=== PATIENT | female | born 1955 | race Caucasian/White ===

== ENCOUNTER → 2016-08-26 | Outpatient (CLI) | payer OTHER ==
--- NOTE | 2016-08-26 15:19 | BD ---
EXAMINATION TYPE: MG DEXA axial skeleton. DATE OF EXAM: 08/26/2016 1:00 PM COMPARISON: NONE CLINICAL HISTORY: 60-year-old female postmenopausal without HRT Height: 62 IN Weight: 167 LBS FRAX RISK QUESTIONS: Alcohol (3 or more units per day): NO Family History (Parent hip fracture): NO Glucocorticoids (More than 3mos): NO (Ex: prednisone, prednisolone, methylprednisolone, dexamethasone, and hydrocortisone). History of Fracture in Adulthood: NO Secondary Osteoporosis: 1. Type 1 Diabetes: NO 2. Hyperthyroidism: NO 3. Menopause before 45: AGE 58 4. Malnutrition: NO 5. Chronic liver disease: NO Rheumatoid Arthritis: NO Current Tobacco Use: NO RISK FACTORS HISTORY OF: Active: YES Postmenopausal woman: AGE 58 MEDICATIONS: Additional Medications: CALCIUM, VIT D, VIT B, VIT C, IRON PILL, Additional History: BREAST CANCER WITH RADIATION EXAM MEASUREMENTS: Bone mineral densitometry was performed using the [employer] 911 System. Bone mineral density as measured about the Lumbar spine is: ----- L1-L4(G/cm2): 0.936 T Score Values are as follows: ----- L2: -2.2 ----- L3: -2.3 ----- L4: -1.8 ----- L1-L4: -2.0 Bone mineral density BASELINE Bone mineral density about the R hip (g/cm2): 0.935 Bone mineral density about the L hip (g/cm2): 1.018 T Score values are as follows: -----R Neck: -0.7 -----L Neck: -0.1 -----R Intertrochanter: -0.7 -----L Intertrochanter: -0.3 Bone mineral density BASELINE IMPRESSION: Osteopenia as indicated by T score values in the lumbar spine. There is slightly increased risk of fracture and the patient may be considered for treatment. Re-Screen 2-5 years. NOTE: T-SCORE=SD OF THE YOUNG ADULT MEAN.
== END | disposition home or self-care (01) ==
LOC: RADBDWWP 12:58
PROVIDERS: ATTEND Obstetrics & Gynecology
DX: M85.88 Other specified disorders of bone density and structure, other site (principal); Z78.0 Asymptomatic menopausal state
CPT/HCPCS: 77080

== ENCOUNTER → 2017-03-24 | Outpatient (CLI) | payer OTHER ==
--- NOTE | 2017-03-26 07:56 | MM ---
Reason for exam: screening (asymptomatic). Last mammogram was performed 1 year ago. History: Patient is postmenopausal, has history of breast cancer at age 44, and had previous chest radiation therapy at age 44. Family history of breast cancer in paternal aunt at age 70 and breast cancer in mother at age 80. Benign excisional biopsy of the left breast, November 25, 2000. Malignant stereotactic core biopsy of the left breast, September 22, 2000. Lumpectomy of the left breast, 2000. Radiation therapy of the left breast, 2000. Core biopsy of the left breast. Took hormonal contraceptives for 3 months beginning at age 21. Took tamoxifen for 5 years beginning at age 45. Physical Findings: A clinical breast exam by your physician is recommended on an annual basis and results should be correlated with mammographic findings. MG Screening Mammo w CAD Bilateral CC and MLO view(s) were taken. Prior study comparison: March 20, 2016, bilateral MG diagnostic mammo w CAD [facility]. March 13, 2015, bilateral MG 3d diag mammo w/cad [facility]. The breast tissue is heterogeneously dense. This may lower the sensitivity of mammography. Stable post surgical scar and architectural distortion 4 o'clock left breast. No significant changes when compared with prior studies. ASSESSMENT: Benign, BI-RAD 2 RECOMMENDATION: Routine screening mammogram of both breasts in 1 year.
== END | disposition home or self-care (01) ==
LOC: RADMAMWWP 12:56
PROVIDERS: ATTEND Obstetrics & Gynecology
DX: Z12.31 Encounter for screening mammogram for malignant neoplasm of breast (principal)

== ENCOUNTER → 2017-04-07 | Outpatient (CLI) | payer OTHER ==
--- NOTE | 2017-04-08 00:23 | MR ---
EXAMINATION TYPE: MR ankle LT wo/w con DATE OF EXAM: 04/07/2017 COMPARISON: NONE HISTORY: Lt ankle lump medial aspect, increasing in size, marker placed CONTRAST: Standard multiplanar, multisequence MRI departmental protocol utilizing 7.5 mL intravenous Gadavist g adolinium contrast. FINDINGS: There are plantar and Achilles calcaneal spurs. Achilles tendon is intact. Plantar fascia a ppears normal. There is minimal ankle joint effusion. There is fluid around the medial flexor tendons of the ankle. The medial and lateral flexor tendons appear intact. I see no bony destructive process . There is a 1 cm area of fluid signal in the medial malleolus. I see no fracture line. The collatera l ligaments appear intact. The joint spaces are fairly well-maintained. IMPRESSION: Peritendinous fluid on the medial aspect of the ankle involving the flexor pollicis longus and brevis tendons appears to account for the palpable lump. This is consistent with synovitis or tendinitis. N o tendon tear is seen. Mild ankle joint effusion. Edema or fluid in the medial malleolus posteriorly that could be a bone bruise.
== END | disposition home or self-care (01) ==
LOC: RADMRIMAIN 14:14
PROVIDERS: ATTEND Podiatrist Foot & Ankle Surgery
DX: M25.472 Effusion, left ankle (principal)
CPT/HCPCS: 73723; A9581

== ENCOUNTER → 2018-03-25 | Outpatient (CLI) | payer OTHER ==
--- NOTE | 2018-03-26 12:19 | MM ---
Reason for exam: screening (asymptomatic). Last mammogram was performed 1 year ago. History: Patient is postmenopausal, has history of breast cancer at age 44, and had previous chest radiation therapy at age 44. Family history of breast cancer in paternal aunt at age 70 and breast cancer in mother at age 80. Benign excisional biopsy of the left breast, November 25, 2000. Malignant stereotactic core biopsy of the left breast, September 22, 2000. Lumpectomy of the left breast, 2000. Radiation therapy of the left breast, 2000. Core biopsy of the left breast. Took hormonal contraceptives for 3 months beginning at age 21. Took tamoxifen for 5 years beginning at age 45. Physical Findings: A clinical breast exam by your physician is recommended on an annual basis and results should be correlated with mammographic findings. MG 3D Screening Mammo W/Cad Bilateral CC and MLO view(s) were taken. Prior study comparison: March 24, 2017, bilateral MG screening mammo w CAD. March 20, 2016, bilateral MG diagnostic mammo w CAD [facility]. The breast tissue is heterogeneously dense. This may lower the sensitivity of mammography. Stable post operative changes in the left breast. No significant changes when compared with prior studies. ASSESSMENT: Benign, BI-RAD 2 RECOMMENDATION: Routine screening mammogram of both breasts in 1 year.
== END ==
LOC: RADMAMWWP 14:17
PROVIDERS: ATTEND Obstetrics & Gynecology
DX: Z12.31 Encounter for screening mammogram for malignant neoplasm of breast (principal)
CPT/HCPCS: 77063; 77067

== ENCOUNTER → 2019-03-26 | Outpatient (CLI) | payer OTHER ==
--- NOTE | 2019-03-26 15:30 | BD ---
EXAMINATION TYPE: Axial Bone Density DATE OF EXAM: 03/26/2019 COMPARISON: 08.26.2016 CLINICAL HISTORY: M [age] Height: 62 Weight: 176.7 FRAX RISK QUESTIONS: Alcohol (3 or more units per day): no Family History (Parent hip fracture): no Glucocorticoids (More than 3mos): no (Ex: prednisone, prednisolone, methylprednisolone, dexamethasone, and hydrocortisone). History of Fracture in Adulthood: no Secondary Osteoporosis: 1. Type 1 Diabetes: no 2. Hyperthyroidism: no 3. Menopause before 45: no 4. Malnutrition: no 5. Chronic liver disease: no Rheumatoid Arthritis: no Current Tobacco Use: no RISK FACTORS HISTORY OF: Family History of Osteoporosis: no Active: yes Diet low in dairy products/other sources of calcium: no Postmenopausal woman: age 57 Lost more than 2 inches in height since high school: no MEDICATIONS: none Additional History: EXAM MEASUREMENTS: Bone mineral densitometry was performed using the [employer] System. Bone mineral density as measured about the Lumbar spine is: ----- L1-L4(G/cm2): 1.004 T Score Values are as follows: ----- L2: -2.1 ----- L3: -1.7 ----- L4: -0.8 ----- L1-L4: -1.5 Bone mineral density has: increased 7.9 % since study of: 08.26.2016 Bone mineral density about the R hip (g/cm2): 0.977 Bone mineral density about the L hip (g/cm2): 1.001 T Score values are as follows: -----R Neck: -0.4 -----L Neck: -0.3 -----R Total: -0.4 -----L Total: -0.2 Bone mineral density has: decreased -2.3 % since study of: 08.26.2016 IMPRESSION: Normal (Values between +1 and -1 indicate normal bone mass). Consider repeating this study in 5 year s or sooner if there is some new clinical indication. NOTE: T-SCORE=SD OF THE YOUNG ADULT MEAN.
--- NOTE | 2019-03-30 09:55 | MM ---
Reason for exam: screening (asymptomatic). Last mammogram was performed 1 year ago. History: Patient is postmenopausal, has history of breast cancer at age 44, and had previous chest radiation therapy at age 44. Family history of breast cancer in paternal aunt at age 70 and breast cancer in mother at age 80. Benign excisional biopsy of the left breast, November 25, 2000. Malignant stereotactic core biopsy of the left breast, September 22, 2000. Lumpectomy of the left breast, 2000. Radiation therapy of the left breast, 2000. Core biopsy of the left breast. Took hormonal contraceptives for 3 months beginning at age 21. Took tamoxifen for 5 years beginning at age 45. Physical Findings: A clinical breast exam by your physician is recommended on an annual basis and results should be correlated with mammographic findings. MG 3D Screening Mammo W/Cad Bilateral CC and MLO view(s) were taken. Prior study comparison: March 25, 2018, bilateral MG 3d screening mammo w/cad. March 24, 2017, bilateral MG screening mammo w CAD. The breast tissue is heterogeneously dense. This may lower the sensitivity of mammography. Post surgical scar redemonstrated left breast. No significant changes when compared with prior studies. ASSESSMENT: Benign, BI-RAD 2 RECOMMENDATION: Routine screening mammogram of both breasts in 1 year.
== END | disposition home or self-care (01) ==
LOC: RADMAMWWP 13:58
PROVIDERS: ATTEND Obstetrics & Gynecology
DX: Z12.31 Encounter for screening mammogram for malignant neoplasm of breast (principal); Z13.820 Encounter for screening for osteoporosis; M89.9 Disorder of bone, unspecified
CPT/HCPCS: 77063; 77067; 77080

== ENCOUNTER → 2020-05-29 | Outpatient (CLI) | payer OTHER ==
--- NOTE | 2020-05-30 11:22 | MM ---
Reason for exam: screening (asymptomatic). Last mammogram was performed 1 year and 2 months ago. History: Patient is postmenopausal, has history of breast cancer at age 44, and had previous chest radiation therapy at age 44. Family history of breast cancer in paternal aunt at age 70 and breast cancer in mother at age 80. Benign excisional biopsy of the left breast, November 25, 2000. Malignant stereotactic core biopsy of the left breast, September 22, 2000. Lumpectomy of the left breast, 2000. Radiation therapy of the left breast, 2000. Core biopsy of the left breast. Took hormonal contraceptives for 3 months beginning at age 21. Took tamoxifen for 5 years beginning at age 45. Physical Findings: A clinical breast exam by your physician is recommended on an annual basis and results should be correlated with mammographic findings. MG 3D Screening Mammo W/Cad Bilateral CC and MLO view(s) were taken. Prior study comparison: March 26, 2019, bilateral MG 3d screening mammo w/cad. March 25, 2018, bilateral MG 3d screening mammo w/cad. March 20, 2016, bilateral MG diagnostic mammo w CAD [facility]. The breast tissue is heterogeneously dense. This may lower the sensitivity of mammography. No significant changes when compared with prior studies. ASSESSMENT: Benign, BI-RAD 2 RECOMMENDATION: Routine screening mammogram of both breasts in 1 year.
== END | disposition home or self-care (01) ==
LOC: RADMAMWWP 14:48
PROVIDERS: ATTEND Obstetrics & Gynecology
DX: Z12.31 Encounter for screening mammogram for malignant neoplasm of breast (principal)
CPT/HCPCS: 77063; 77067

== ENCOUNTER → 2021-07-16 | Outpatient (CLI) | payer OTHER ==
--- NOTE | 2021-07-18 12:46 | MM ---
Reason for exam: screening (asymptomatic). Last mammogram was performed 1 year and 2 months ago. History: Patient is postmenopausal, has history of breast cancer at age 44, and had previous chest radiation therapy at age 44. Family history of breast cancer in paternal aunt at age 70 and breast cancer in mother at age 80. Benign excisional biopsy of the left breast, November 25, 2000. Malignant stereotactic core biopsy of the left breast, September 22, 2000. Lumpectomy of the left breast, 2000. Radiation therapy of the left breast, 2000. Core biopsy of the left breast. Took hormonal contraceptives for 3 months beginning at age 21. Took tamoxifen for 5 years beginning at age 45. Physical Findings: A clinical breast exam by your physician is recommended on an annual basis and results should be correlated with mammographic findings. MG 3D Screening Mammo W/Cad Bilateral CC and MLO view(s) were taken. Prior study comparison: May 29, 2020, bilateral MG 3d screening mammo w/cad. March 26, 2019, bilateral MG 3d screening mammo w/cad. The breast tissue is heterogeneously dense. This may lower the sensitivity of mammography. Post surgical changes left breast. No significant changes when compared with prior studies. ASSESSMENT: Benign, BI-RAD 2 RECOMMENDATION: Routine screening mammogram of both breasts in 1 year.
== END | disposition home or self-care (01) ==
LOC: RADMAMWWP 12:31
PROVIDERS: ATTEND Obstetrics & Gynecology
DX: Z12.31 Encounter for screening mammogram for malignant neoplasm of breast (principal)
CPT/HCPCS: 77063; 77067

== ENCOUNTER → 2023-07-21 | Outpatient (CLI) | payer MEDICARE ==
--- NOTE | 2023-07-23 14:17 | MM ---
Reason for Exam: Screening (asymptomatic). Last screening mammogram was performed 12 month(s) ago. Patient History: Menarche at age 14. First Full-Term at age 24. Left ovary removed at age 59. Right ovary removed at age 59. Hysterectomy at age 59. Postmenopausal. Breast cancer, left, age 44. Previous chest radiation therapy at age 44. Hormonal Contraceptives for 3 months starting at age 21. Tamoxifen for 5 years from age 45 until age 50. 2000, Lumpectomy on the Left side. Core Biopsy on the Left side. 11/25/2000, Benign Excisional Biopsy on the left side. 09/22/2000, Malignant Stereotactic Core Biopsy on the left side. 2000, Radiation Therapy on the left side. Paternal aunt had breast cancer, age 70. Mother had breast cancer, age 80. Prior Study Comparison: 05/29/2020 Bilateral Screening Mammogram, [facility]. 07/16/2021 Bilateral Screening Mammogram, [facility]. 07/17/2022 Bilateral MG 3D screening mammo w/cad, [facility]. Tissue Density: There are scattered areas of fibroglandular density. Findings: Analyzed By CAD. Similar left architectural distortion slightly lateral to the back to at least 2019 There is no suspicious group of microcalcifications or new suspicious mass. Overall Assessment: Benign, BI-RAD 2 Management: Screening Mammogram of both breasts in [address] [facility] will attempt to contact patient to return for supplemental views and ultrasound if indicated. Patient should continue monthly self-breast exams. A clinical breast exam by your physician is recommended on an annual basis. This exam should not preclude additional follow-up of suspicious palpable abnormalities. Note on Arlene scores and lifetime risk: 1. A Arlene score greater than 3% is considered moderate risk. If this is the case, consider specialist referral to assess eligibility for a risk reducing agent. 2. If overall lifetime risk for the development of breast cancer is 20% or higher, the patient may qualify for future screening with alternating mammogram and breast MRI. Electronically signed and approved by: Shashi Yu DO
== END | disposition home or self-care (01) ==
LOC: RADMAMWWP 12:49
PROVIDERS: ATTEND Obstetrics & Gynecology
DX: Z12.31 Encounter for screening mammogram for malignant neoplasm of breast (principal); Z85.3 Personal history of malignant neoplasm of breast; Z80.3 Family history of malignant neoplasm of breast; Z78.0 Asymptomatic menopausal state
CPT/HCPCS: 77063; 77067

== ENCOUNTER → 2024-07-26 | Outpatient (CLI) | payer MEDICARE ==
--- NOTE | 2024-07-26 14:26 | BD ---
EXAMINATION TYPE: Axial Bone Density DATE OF EXAM: 07/26/2024 CLINICAL HISTORY: 68 years old Female. ICD-10 CODE: Z78.0 ASYMPTOMATIC MENOPAUSAL STA , Additional History: Height: 62 Weight: 166 FRAX RISK QUESTIONS: Family History (Parent hip fracture): yes History of Fracture in Adulthood: no Secondary Osteoporosis: no RISK FACTORS HISTORY OF: Surgery to Spine/Hip(right/left)/Wrist (right/left): no MEDICATIONS: Thyroid Medications: no Osteoporosis Medications: no EXAM MEASUREMENTS: Bone mineral densitometry was performed using the [employer] System. Bone mineral density as measured about the Lumbar spine is: ----- L1-L4(G/cm2): 1.013 T Score Values are as follows: ----- L1: -1.5 ----- L2: -1.7 ----- L3: -1.6 ----- L4: -0.9 ----- L1-L4: -1.4 Z Score Values are as follows: ----- L1: -0.3 ----- L2: -0.4 ----- L3: -0.4 ----- L4: 0.3 ----- L1-L4: -0.1 Bone mineral density has: Increased 3.1% since study of: 07/17/2022 Bone mineral density about the R hip (g/cm2): 0.887 Bone mineral density about the L hip (g/cm2): 0.911 T Score values are as follows: -----R Neck: -1.0 -----L Neck: -0.7 -----R Total: -1.0 -----L Total: -0.8 Z Score values are as follows: -----R Neck: 0.3 -----L Neck: 0.6 -----R Total: 0.1 -----L Total: 0.3 Bone mineral density has: Decreased -2.2% since study of: 07/17/2022 FRAX%s: The graph provided illustrates a 14.5% chance for a major osteoporotic fx and a 0.8% chance f or the hips probability for fx in 10 years time. IMPRESSION: Osteopenia (T Score between -2.5 and -1) remains present. There is slightly increased risk of fracture and the patient may be considered for treatment. Re-Screen 2-5 years. NOTE: T-SCORE=SD OF THE YOUNG ADULT MEAN. [facility], , 07/26/2024 2:24 PM
--- NOTE | 2024-07-26 14:39 | MM ---
Reason for Exam: Screening (asymptomatic). Last screening mammogram was performed 12 month(s) ago. Patient History: Menarche at age 14. First Full-Term at age 24. Left ovary removed at age 59. Right ovary removed at age 59. Hysterectomy at age 59. Postmenopausal. Breast cancer, left, age 44. Previous chest radiation therapy. Hormonal Contraceptives for 3 months starting at age 21. Tamoxifen for 5 years from age 45 until age 50. 2000, Lumpectomy on the Left side. Core Biopsy on the Left side. 11/25/2000, Benign Excisional Biopsy on the left side. 09/22/2000, Malignant Stereotactic Core Biopsy on the left side. 2000, Radiation Therapy on the left side. Paternal aunt had breast cancer, age 70. Mother had breast cancer, age 80. Prior Study Comparison: 07/16/2021 Bilateral Screening Mammogram, [facility]. 07/17/2022 Bilateral MG 3D screening mammo w/cad, [facility]. 07/21/2023 Bilateral MG 3D screening mammo w/cad, [facility]. Tissue Density: The breasts are heterogeneously dense, which may obscure small masses. Findings: Analyzed By CAD. Stable distortion/posttreatment change in the left breast There is a new 10 mm lobulated mass posterior depth upper outer quadrant right breast. Overall Assessment: Incomplete: need additional imaging evaluation, BI-RAD 0 Management: Diagnostic Breast Ultrasound of the right breast. Targeted ultrasound right breast. Patient should continue monthly self-breast exams. A clinical breast exam by your physician is recommended on an annual basis. This exam should not preclude additional follow-up of suspicious palpable abnormalities. Note on Arlene scores and lifetime risk: 1. A Arlene score greater than 3% is considered moderate risk. If this is the case, consider specialist referral to assess eligibility for a risk reducing agent. 2. If overall lifetime risk for the development of breast cancer is 20% or higher, the patient may qualify for future screening with alternating mammogram and breast MRI. [facility], , 07/26/2024 2:37 PM. Electronically signed and approved by: Giacomo Burns M.D.
== END | disposition home or self-care (01) ==
LOC: RADMAMWWP 13:27
PROVIDERS: ATTEND Family Medicine
DX: Z12.31 Encounter for screening mammogram for malignant neoplasm of breast (principal); R92.333 Mammographic heterogeneous density, bilateral breasts; M85.89 Other specified disorders of bone density and structure, multiple sites; Z78.0 Asymptomatic menopausal state; Z80.3 Family history of malignant neoplasm of breast; Z85.3 Personal history of malignant neoplasm of breast
CPT/HCPCS: 77063; 77067; 77080

== ENCOUNTER → 2024-08-16 | Outpatient (CLI) | payer MEDICARE ==
--- NOTE | 2024-08-16 15:38 | USB ---
Reason for Exam: Additional evaluation requested from abnormal screening. Patient History: Menarche at age 14. First Full-Term at age 24. Left ovary removed at age 59. Right ovary removed at age 59. Hysterectomy at age 59. Postmenopausal. Breast cancer, left, age 44. Previous chest radiation therapy. Hormonal Contraceptives for 3 months starting at age 21. Tamoxifen for 5 years from age 45 until age 50. 2000, Lumpectomy on the Left side. Core Biopsy on the Left side. 11/25/2000, Benign Excisional Biopsy on the left side. 09/22/2000, Malignant Stereotactic Core Biopsy on the left side. 2000, Radiation Therapy on the left side. Paternal aunt had breast cancer, age 70. Mother had breast cancer, age 80. Technique: Method: Targeted. Prior Study Comparison: 07/17/2022 Bilateral MG 3D screening mammo w/cad, [facility]. 07/21/2023 Bilateral MG 3D screening mammo w/cad, [facility]. 07/26/2024 Bilateral MG 3D screening mammo w/cad, [facility]. Findings: The upper outer quadrant of the right breast, the axilla of the right breast and the retroareolar of the right breast were scanned. Targeted ultrasound upper outer quadrant right breast 9:00 to 12:00 including scanning of the subareolar region and axilla. At the 9:00 position, 7 cm from the nipple mammographically is a lobulated 9 x 6 x 5 mm. Either clumped intracystic debris or abnormal soft tissue measuring 7 mm. Tissue sampling is recommended to exclude the possibility of a papilloma or other intracystic lesion. No other solid or cystic lesion or axillary adenopathy. Overall Assessment: Suspicious, BI-RAD 4 Management: Ultrasound Core Biopsy of the right breast. Electronically signed and approved by: Bonny Ronquillo M.D. Radiologist
== END | disposition home or self-care (01) ==
LOC: RADUSWWP 14:54
PROVIDERS: ATTEND Family Medicine
DX: R92.8 Other abnormal and inconclusive findings on diagnostic imaging of breast (principal); Z80.3 Family history of malignant neoplasm of breast; Z78.0 Asymptomatic menopausal state; Z85.3 Personal history of malignant neoplasm of breast; Z92.0 Personal history of contraception

== ENCOUNTER → 2024-08-27 | Day surgery (SDC) | payer MEDICARE ==
--- NOTE | 2024-09-01 12:58 | MM ---
Reason for Exam: Post Procedure Mammogram. Last screening mammogram was performed 1 month(s) ago. Patient History: Menarche at age 14. First Full-Term at age 24. Left ovary removed at age 59. Right ovary removed at age 59. Hysterectomy at age 59. Postmenopausal. Breast cancer, left, age 44. Previous chest radiation therapy. Hormonal Contraceptives for 3 months starting at age 21. Tamoxifen for 5 years from age 45 until age 50. 2000, Lumpectomy on the Left side. Core Biopsy on the Left side. 11/25/2000, Benign Excisional Biopsy on the left side. 09/22/2000, Malignant Stereotactic Core Biopsy on the left side. 2000, Radiation Therapy on the left side. Paternal aunt had breast cancer, age 70. Mother had breast cancer, age 80. Prior Study Comparison: 07/17/2022 Bilateral MG 3D screening mammo w/cad, [facility]. 07/21/2023 Bilateral MG 3D screening mammo w/cad, [facility]. 07/26/2024 Bilateral MG 3D screening mammo w/cad, [facility]. Tissue Density: Right: The breasts are heterogeneously dense, which may obscure small masses. Pathology Description: Location: 9 o'clock. Marker Left Behind. Needle Type: Bard 14g x 10cm Cores: 2 Skin Nicks: 1 The procedure of ultrasound guided core biopsy was explained to the patient. Benefits, alternatives, and risks were discussed. An informed consent was then obtained. A time out was performed at 1031. The patient was placed in supine positioning for imaging and for the procedure. The overlying skin was prepped and draped in usual sterile fashion. 4 ml 1% lidocaine buffered with bicarbonate was used as anesthetic into the skin and subcutaneous tissue up to area of concern in the right 9 o'clock breast, 6 cm from nipple. A charleen was made with surgical scalpel. Under ultrasound guidance, a 12-gauge vacuum assisted biopsy gun device was used to obtain 2 core samples. Following this, a butterfly biopsy clip was left in the lesion. A post procedure mammogram was performed, clip seen and correlates with the mammographic finding. The patient tolerated the procedure well without any immediate complication. The patient was discharged home in stable condition. Impression: Successful, uncomplicated ultrasound guided core biopsy of area of concern in the right breast. PATHOLOGY STATUS: Results pending [facility], , 08/27/2024 11:26 AM. Pathology Results: Result: Malignant. Pathology and radiology were reviewed. Findings are concordant. 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 Overall Assessment: Malignant Assessment: MG diagnostic mammo RT wo CAD - Right: Known biopsy proven malignancy, BI-RAD 6. Management: Surgical Consultation of the right breast. Electronically signed and approved by: Keny Davila M.D. Radiologis
== END ==
LOC: RADUSWWP 10:12
PROVIDERS: ATTEND Family Medicine
DX: D05.11 Intraductal carcinoma in situ of right breast (principal); R92.8 Other abnormal and inconclusive findings on diagnostic imaging of breast; Z17.0 Estrogen receptor positive status [ER+]; Z78.0 Asymptomatic menopausal state; Z80.3 Family history of malignant neoplasm of breast; Z90.721 Acquired absence of ovaries, unilateral; Z85.3 Personal history of malignant neoplasm of breast
CPT/HCPCS: 88305; 88342; 88341; 77065; 19083; A4648

== ENCOUNTER 2024-11-01 06:47 | Day surgery (SDC) | payer MEDICARE ==
[2024-10-28 12:03] VITALS: BMI 30.3
[2024-11-01] MEDS ORDERED: HYDROmorphone 0.5 MG/0.5 ML SYRINGE IVP PRN (07:34)
[2024-11-01] MEDS: IV FLUID CONTINUATION 1,000 ML IV ONE (07:35)
[2024-11-01] MEDS: ALPRAZolam 0.25 MG TAB PO STA (07:45)
[2024-11-01] MEDS: LACTATED RINGERS 1,000 ML IV SCH (07:46)
[2024-11-01] MEDS: ACETAMINOPHEN TAB 500 MG TAB PO PRN (07:51)
[2024-11-01] MEDS: LIDOCAINE 1% INJ 10MG/ML (20 ML MDV) SQ ONE (08:14)
[2024-11-01] MEDS: SODIUM BICARB 8.4% 50 ML VIAL (1 MEQ/ML) MISCELLANE ONE (08:14)
[2024-11-01] MEDS: ONDANSETRON 4 MG/2 ML VIAL IVP ONE (08:47)
[2024-11-01] MEDS: DEXAMETHASONE SOD PHOSPHATE 4 MG/ML 1 ML VIAL IV ONE (08:47)
[2024-11-01] MEDS: HEPARIN SODIUM,PORCINE 5,000 UNIT/ML 1 ML VIAL SQ PRN (08:47)
--- NOTE | 2024-11-01 09:58 | P.NAPBC ---
NAPBC Queries - NAPBC Queries Was patient's case review presented at [facility] tumor board? If no, comment.: No (Scheduled for presentation) Was patient's pathology reviewed at [facility]? If no, comment.: Yes Was breast conservation surgery offered? If no, comment.: Yes Was sentinel node biopsy offered? If no, comment.: No (Stage 0 low-grade) Was diagnosis confirmed by percutaneous core biopsy? If no, comment.: Yes Is patient mastectomy patient?: No Was a preop referral to reconstructive surgeon offered?: Yes Clinical Stage: 0
[2024-11-01] MEDS ORDERED: MIDAZOLAM 2 MG/2 ML VIAL ONE (10:00)
[2024-11-01] MEDS ORDERED: PROPOFOL 10 MG/ML 20 ML VIAL IV ONE (10:00)
[2024-11-01] MEDS ORDERED: LIDOCAINE 1% INJ 10MG/ML (20 ML MDV) ONE (10:00)
[2024-11-01] MEDS ORDERED: fentaNYL (PF) 50 MCG/ML 2 ML AMP ONE (10:00)
[2024-11-01] MEDS: ceFAZolin 2 GM in DEXTROSE 5% IN WATER 50 ML IVPB PRN (10:05)
[2024-11-01] MEDS: BUPIVACAINE (PF) 0.25% 30 ML VIAL SQ ONE (10:34)
[2024-11-01 10:57] VITALS: TEMP 97.1
[2024-11-01] MEDS ORDERED: traMADol 50 MG TAB PO STA (10:57)
--- NOTE | 2024-11-01 11:01 | P.OP ---
Date of Procedure: 11/01/24 Procedure(s) Performed: PREOPERATIVE DIAGNOSIS: Right breast cancer POSTOPERATIVE DIAGNOSIS: Same PROCEDURE: Right Breast wire localization lumpectomy SURGEON: Niya EBL: Minimal ANESTHESIA: General COMPLICATIONS: None OPERATIVE PROCEDURE: Patient was placed on the operating room table in the supine position. The breast was prepped and draped sterilely. The patient's wire was entering the right breast at the 9:00 location directed medially. The wire entrance site was then addressed. A curvilinear incision was made adjacent to the wire entrance site. I followed the wire down into the breast tissue. An adequate lumpectomy specimen then took place around the wire. Margins of 1.5-2 cm worth attempted to be achieved. Additional margins were taken in the anterior inferior and medial location. The initial specimen was also painted the appropriate 6 colors. The new margin was painted the 3 appropriate colors on the new margin edge. Clips were used to identify the lumpectomy cavity. The clip was confirmed to be within the lumpectomy specimen by radiology. The subcutaneous tissues were closed using 3-0 Vicryl sutures. The skin was closed using a running 4-0 Monocryl stitch. Skin glue was then applied. DISPOSITION: Stable to recovery room
[2024-11-01 11:42] VITALS: RESP 18
[2024-11-01 11:56] VITALS: BP 146/78; PULSE 72
[2024-11-01] MEDS ORDERED: ACETAMINOPHEN TAB 325 MG TAB PO SCH (12:00)
[2024-11-03] MEDS ORDERED: MELOXICAM 7.5 MG TAB PO SCH (09:00)
--- NOTE | 2024-11-16 08:43 | MM ---
Pathology Description: The procedure of needle localization with wire placement and than surgical excision was explained to the patient. Benefits, alternatives, and risks were discussed. An informed consent was then obtained. The shortest pathway for procedure was chosen. The overlying skin was prepped and draped in usual sterile fashion. Lidocaine was used as anesthetic into the skin and subcutaneous tissue up to the level of area of concern. A 9 cm needle was used. It was placed via a lateral approach under mammographic guidance. Subsequent 90 degrees mammogram show the needle to be in satisfactory position relative to the targeted area. At this point, wire was placed and the needle was withdrawn. The wire was fixed to patient's skin. Images were marked for surgeon. The patient tolerated the procedure well without any immediate complication. The patient was kept in the radiology department for short stay after the procedure and then taken to surgery for surgical excision. Targeted biopsy clip and wire are identified in specimen mammogram. The patient was kept in hospital for short stay after the procedure and then discharged home in stable condition. Impression: Successful, uncomplicated needle localization with wire placement and surgical excision of biopsy clip in the right breast, full pathology results to follow. [facility], , 11/01/2024 11:28 AM. Pathology Results: Result: Malignant. Pathology and radiology were reviewed. Findings are concordant. 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 See [facility] surgical pathology cancer case summary and comment. All margins negative for DCIS. Papilloma involved by DCIS present approximately 1.5 mm from closest posterior margin. Background focal atypical lobular hyperplasia (ALH), intraductal papillomas with usual hyperplasia and focal atypical ductal hyperplasia (ADH) and flat epithelial atypia (FEA) present. New margin tissue having focal 2 mm area of low-grade DCIS and focal atypical ductal hyperplasia (ADH). New marginal area is negative for DCIS. New margin sections with focal LCIS and papilloma, margins negative. Overall Assessment: Malignant Management: Diagnostic Mammogram of the right breast in 6 months. Electronically signed and approved by: Shashi Yu DO
== END 2024-11-01 12:10 | disposition home or self-care (01) ==
LOC: OR 06:47
PROVIDERS: ATTEND Surgery
DX: D05.11 Intraductal carcinoma in situ of right breast (principal); D05.81 Other specified type of carcinoma in situ of right breast; D24.1 Benign neoplasm of right breast; N60.91 Unspecified benign mammary dysplasia of right breast; Z79.82 Long term (current) use of aspirin; Z79.899 Other long term (current) drug therapy
CPT/HCPCS: 19301; 19281; 88307; 76098; C1819; J2250; J1644; J1100; J0690; J2405; J2003; J3010; J2704; J0665